=== PATIENT | male | born 1970 | race Caucasian/White ===

== ENCOUNTER 2017-07-05 11:44 | Inpatient (IN) | payer MEDICARE ==
[~2017-07-05] VITALS: Ht 175.3 cm; Wt 91.4 kg
[2017-07-05 12:58] VITALS: BP 117/71
[2017-07-05] MEDS ORDERED: HALOPERIDOL 5 MG TABLET PO PRN (13:15)
[2017-07-05] MEDS ORDERED: AMPH20CA PO (13:35)
[2017-07-05] MEDS ORDERED: ADDE10 PO (13:35)
[2017-07-05] MEDS ORDERED: PANT40TA25 PO (13:37)
[2017-07-05] MEDS ORDERED: BUPR-93 PO (13:37)
[2017-07-05] MEDS ORDERED: METO50 PO (13:37)
[2017-07-05] MEDS ORDERED: CLON1 PO (13:37)
[2017-07-05] MEDS ORDERED: SERT50TA12 PO (13:37)
[2017-07-05] MEDS ORDERED: PNEUMOCOCCAL VACCINE POLYVALENT 0.5 ML VIAL [PPSV23] IM ONE (13:45)
[2017-07-05] MEDS: LORazepam 2 MG TABLET PO PRN ×2 (14:11→18:39)
[2017-07-05] MEDS ORDERED: ACETAMINOPHEN 325 MG TABLET PO PRN (14:15)
[2017-07-05] MEDS: IBUPROFEN 600 MG TABLET PO PRN (14:42)
[2017-07-05 16:15] VITALS: BP 117/81
[2017-07-05] MEDS: ZOLPIDEM TARTRATE 10 MG TABLET PO PRN (20:52)
[2017-07-06] MEDS: IBUPROFEN 600 MG TABLET PO PRN ×5 (02:46→23:52)
[2017-07-06 02:49] VITALS: BP 126/80
[2017-07-06] MEDS: LORazepam 2 MG TABLET PO PRN ×4 (02:52→23:52)
[2017-07-06 07:59] LABS: BASOPHILS # (AUTO) 0.02 K/uL (0.00-0.20); BASOPHILS % (AUTO) 0.3 % (0.0-2.0); EOSINOPHILS # (AUTO) 0.21 K/uL (0.00-0.70); EOSINOPHILS % (AUTO) 2.94 % (1.0-6.0); HEMATOCRIT 36.8 % (41-53); HEMOGLOBIN 12.6 g/dL (13.5-17.5); LYMPHOCYTES # (AUTO) 1.7 K/uL (1.0-4.8); MEAN CORPUSCULAR HEMOGLOBIN 30.8 pg (26.0-34.0); MEAN CORPUSCULAR HGB CONC 34.2 G/dL (31.0-37.0); MEAN CORPUSCULAR VOLUME 90 fL (80-100); MONOCYTES # (AUTO) 0.6 K/uL (0.1-1.0); MONOCYTES % (AUTO) 8.9 % (2.0-9.0); NEUTROPHILS # (AUTO) 4.6 K/uL (1.8-7.7); NEUTROPHILS % (AUTO) 63.8 % (40.0-70.0); PLATELET COUNT (AUTO) 272 K/uL (150-450); RED BLOOD CELL COUNT(AUTO) 4.08 MIL/uL (4.50-5.90); RED CELL DISTRIBUTION WIDTH 14.4 % (11.5-14.5); WHITE BLOOD COUNT (AUTO) 7.2 K/uL (4.5-11.0)
[2017-07-06 08:39] LABS: HEMOGLOBIN A1C 5.9 % (4.5-6.2)
[2017-07-06 08:46] LABS: ALANINE AMINOTRANSFERASE 405 U/L (12-78); ALBUMIN 3.5 g/dL (3.4-5.0); ANION GAP 9 mmol/L (8-16); ASPARTATE AMINOTRANSFERASE 77 U/L (15-37); BILIRUBIN,TOTAL 0.7 mg/dL (0.1-1.0); CALCIUM, TOTAL 8.6 mg/dL (8.8-10.5); CARBON DIOXIDE 27 mmol/L (22-29); CHLORIDE 103 mmol/L (98-107); CHOL/HDL RATIO 5.7 (4.2-7.3); CREATININE 0.96 mg/dL (0.60-1.30); GLOMERULAR FILTR. RATE CALC > 60 mL/min (>60); POTASSIUM 4.1 mmol/L (3.5-5.1); SODIUM SERUM 139 mmol/L (136-145); THYROID STIMULATING HORMONE 1.45 uIU/mL (0.36-3.74); TOTAL PROTEIN, SERUM 6.6 g/dL (6.4-8.2); UREA NITROGEN, BLOOD 13 mg/dL (7-18)
[2017-07-06 08:52] VITALS: BP 126/68
[2017-07-06] MEDS: SIMVASTATIN 40 MG TABLET PO SCH (09:14)
[2017-07-06] MEDS: PANTOPRAZOLE SODIUM 40 MG DR TABLET PO SCH (09:14)
[2017-07-06] MEDS: BuPROPion HCL XL 150 MG ER TABLET PO SCH (09:15)
[2017-07-06] MEDS: ESCITALOPRAM OXALATE 20 MG TABLET PO SCH (09:15)
[2017-07-06] MEDS: METOPROLOL SUCCINATE 50 MG ER TABLET PO SCH (09:15)
[2017-07-06 16:06] VITALS: BP 116/72
[2017-07-06 17:25] VITALS: BP 120/70
[2017-07-06 23:50] VITALS: BP 123/82
[2017-07-06] MEDS: ZOLPIDEM TARTRATE 10 MG TABLET PO PRN (23:51)
[2017-07-07 08:38] VITALS: BP 121/78
[2017-07-07] MEDS: ESCITALOPRAM OXALATE 20 MG TABLET PO SCH (09:10)
[2017-07-07] MEDS: BuPROPion HCL XL 150 MG ER TABLET PO SCH (09:10)
[2017-07-07] MEDS: PANTOPRAZOLE SODIUM 40 MG DR TABLET PO SCH (09:10)
[2017-07-07] MEDS: METOPROLOL SUCCINATE 50 MG ER TABLET PO SCH (09:10)
[2017-07-07] MEDS: SIMVASTATIN 40 MG TABLET PO SCH (09:10)
[2017-07-07] MEDS: IBUPROFEN 600 MG TABLET PO PRN ×2 (09:12→16:06)
[2017-07-07] MEDS: LORazepam 2 MG TABLET PO PRN ×3 (09:12→17:25)
[2017-07-07 16:05] VITALS: BP 112/73
[2017-07-08] MEDS: ZOLPIDEM TARTRATE 10 MG TABLET PO PRN (00:01)
[2017-07-08 00:02] VITALS: BP 123/81
[2017-07-08] MEDS: IBUPROFEN 600 MG TABLET PO PRN ×3 (00:02→17:00)
[2017-07-08] MEDS: LORazepam 2 MG TABLET PO PRN ×4 (00:02→17:00)
[2017-07-08] MEDS: SIMVASTATIN 40 MG TABLET PO SCH (08:21)
[2017-07-08] MEDS: METOPROLOL SUCCINATE 50 MG ER TABLET PO SCH (08:21)
[2017-07-08] MEDS: PANTOPRAZOLE SODIUM 40 MG DR TABLET PO SCH (08:22)
[2017-07-08] MEDS: ESCITALOPRAM OXALATE 20 MG TABLET PO SCH (08:22)
[2017-07-08] MEDS: BuPROPion HCL XL 150 MG ER TABLET PO SCH (08:24)
[2017-07-08 08:34] VITALS: BP 122/76
[2017-07-08 09:02] VITALS: BP 124/77
[2017-07-08 16:23] VITALS: BP 124/85
[2017-07-08 17:01] VITALS: BP 121/75
[2017-07-09] MEDS: LORazepam 2 MG TABLET PO PRN ×3 (00:42→16:01)
[2017-07-09] MEDS: IBUPROFEN 600 MG TABLET PO PRN ×3 (00:42→15:00)
[2017-07-09 00:43] VITALS: BP 123/84
[2017-07-09] MEDS: SIMVASTATIN 40 MG TABLET PO SCH (08:10)
[2017-07-09] MEDS: METOPROLOL SUCCINATE 50 MG ER TABLET PO SCH (08:10)
[2017-07-09] MEDS: PANTOPRAZOLE SODIUM 40 MG DR TABLET PO SCH (08:10)
[2017-07-09] MEDS: ESCITALOPRAM OXALATE 20 MG TABLET PO SCH (08:10)
[2017-07-09] MEDS: BuPROPion HCL XL 150 MG ER TABLET PO SCH (08:10)
[2017-07-09 08:11] VITALS: BP 130/82
[2017-07-09 08:59] LABS: ALANINE AMINOTRANSFERASE 209 U/L (12-78); ALBUMIN 3.7 g/dL (3.4-5.0); ANION GAP 6 mmol/L (8-16); ASPARTATE AMINOTRANSFERASE 24 U/L (15-37); BILIRUBIN,TOTAL 0.7 mg/dL (0.1-1.0); CALCIUM, TOTAL 9.1 mg/dL (8.8-10.5); CARBON DIOXIDE 31 mmol/L (22-29); CHLORIDE 102 mmol/L (98-107); CREATINE KINASE, TOTAL 46 U/L (39-308); CREATININE 1.07 mg/dL (0.60-1.30); GLOMERULAR FILTR. RATE CALC > 60 mL/min (>60); POTASSIUM 4.2 mmol/L (3.5-5.1); SODIUM SERUM 139 mmol/L (136-145); TOTAL PROTEIN, SERUM 7.4 g/dL (6.4-8.2); UREA NITROGEN, BLOOD 15 mg/dL (7-18)
[2017-07-09 15:00] VITALS: BP 116/74
[2017-07-09 16:07] VITALS: BP 109/76
[2017-07-09] MEDS ORDERED: ESCI20TA PO (17:16)
[2017-07-09] MEDS ORDERED: SIMV-261 PO (19:47)
[2017-07-09] MEDS: ZOLPIDEM TARTRATE 10 MG TABLET PO PRN (21:39)
[2017-07-10 01:12] VITALS: BP 118/75
[2017-07-10] MEDS: LORazepam 2 MG TABLET PO PRN (01:15)
[2017-07-10 10:31] LABS: HEPATITIS Bs ANTIGEN SCREEN P Negative (Negative); HEPATITIS C AB SCREEN <0.1 s/co ratio (0.0-0.9)
== END 2017-07-10 07:15 | disposition home or self-care (01) | DRG 885 ==
LOC: B2X 13:21
PROVIDERS: ADMIT Psychiatry & Neurology Psychiatry; ATTEND Psychiatry & Neurology Psychiatry
PROC: 3E0234Z Introduction of Serum, Toxoid and Vaccine into Muscle, Percutaneous Approach (ICD-10-PCS; principal; 2017-07-05)
DX: F33.2 Major depressive disorder, recurrent severe without psychotic features (principal); H90.5 Unspecified sensorineural hearing loss; R45.851 Suicidal ideations; K50.90 Crohn's disease, unspecified, without complications; D64.9 Anemia, unspecified; E78.5 Hyperlipidemia, unspecified; I10 Essential (primary) hypertension; K21.9 Gastro-esophageal reflux disease without esophagitis; F60.3 Borderline personality disorder; F98.8 Other specified behavioral and emotional disorders with onset usually occurring in childhood and adolescence; R79.89 Other specified abnormal findings of blood chemistry; Z91.5 Personal history of self-harm; Z90.49 Acquired absence of other specified parts of digestive tract; Z23 Encounter for immunization; Z88.8 Allergy status to other drugs, medicaments and biological substances
CPT/HCPCS: 80074; 83036; 83735; 84439; 84443; 90471